=== PATIENT | female | born 1980 | race Caucasian/White ===

== ENCOUNTER 2017-05-08 11:39 | Emergency (ER) | payer MEDICAID, SELFPAY ==
[2017-05-08 11:40] VITALS: BP 129/94; PULSE 89; RESP 14; TEMP 36.1; O2SAT 98; BMI 27.9
--- NOTE | 2017-05-08 12:31 | RAD_ITS ---
STUDY: X-RAY CHEST REASON FOR EXAM: Female, 37 years old. Cough. TECHNIQUE: PA and lateral views of the chest. COMPARISON: Comparison is made with prior study dated January 16, 2016. FINDINGS: The lungs are clear and expanded. Scattered calcified granulomas. There is no demonstrated pleural abnormality. Normal size heart. Normal mediastinum and luci. Normal visualized pulmonary arteries. Normal visualized aortic arch and descending thoracic aorta. Normal visualized thoracic spine. Normal visualized ribs, clavicles, and shoulders. There is no demonstrated abnormality of the visualized soft tissue structures of the upper abdomen. RAD/Chest PA and Lateral IMPRESSION: Normal x-ray examination of the chest. Electronically Signed: Mikey Elizabeth MD at 12:50 EST Tel [phone], Service support ,
[2017-05-08 13:29] LABS: Internal QC Validated? YES +Cl - CLEAR BKGD; Monotest Negative (Negative)
--- NOTE | 2017-05-08 14:00 | ED.VISSUMM ---
- ER Visit Summary Date of Service: 05/08/17 Chief Complaint: [Bumps in mouth, gums soreness] History of Present Illness: The patient is a 37 F [who presents the emergency department with bumps in his mouth and gum soreness. Particularly of the right upper jaw. She says when she bites down it hurts and radiates into her right face. She is also had a cough and chest discomfort and runny nose. No fevers but she has had chills and sweats. She denies the possibility of .] Physical Examination: [ Afebrile vital signs within acceptable limits WN WD NAD PERRL EOMI Patient has punctate white lesions on the bottom of her top lip, she has good mentation however she has exquisite tenderness to percussion of the right maxillary molars there is no gum hyperemia, there is no visible abscess, she has pain with biting down Posterior oropharynx shows no erythema exudate or swelling no ulcerations or lesions NECK supple and nontender, no masses RRR no murmur rub or gallop, no peripheral edema, symmetric radial pulses CTAB no respiratory distress ABDOMEN is soft and nontender, normal bowel sounds, no distension, no rebound or guarding SKIN is warm and dry no rashes Alert and Oriented x3, CN II-XII in tact, no motor or sensory deficits, gait normal No lymphadenopathy ] Test Results: [] Emergency Department Course and Treatment: [Chest x-ray shows no acute process. Patient's pain is either likely due to a periapical abscess versus right maxillary sinusitis. She was given Augmentin. She was given precautions for which to return and will follow up with her primary care doctor. She was also given Decadron in the emergency department for symptomatic relief.] Treatment Plan: [] Disposition: [Discharge] Impression: [1. Viral syndrome 2. Right maxillary dental pain] This note was generated with [employer] dictation software. It may contain incorrect words, spelling, and punctuation that were not noted in review of the chart prior to signing ED Disposition - Plan for ED Patient: Chief Complaint: Sore Throat Referrals: Care Physician,No Primary [Primary Care Provider] -
--- NOTE | 2017-05-08 14:05 | ED.DEP ---
ED Disposition - Plan for ED Patient: Chief Complaint: Sore Throat Instructions: ED Viral Syndrome, ED Tooth Pain Referrals: Napoleon Souza DO [NON-STAFF] - 3-5 Days
--- NOTE | 2017-05-08 14:08 | ED.DEP ---
ED Disposition - Plan for ED Patient: Chief Complaint: Sore Throat Instructions: ED Tooth Pain, ED Viral Syndrome Prescriptions: Amox/Clavulanate Tablet [Augmentin Tablet] 875 mg PO Q12H #20 tablet Referrals: Napoleon Souza DO [NON-STAFF] - 3-5 Days
== END 2017-05-08 14:22 | disposition home or self-care (01) ==
LOC: ED 12:32
PROVIDERS: Emergency Provider Emergency Medicine
DX: B34.9 Viral infection, unspecified (principal); K08.89 Other specified disorders of teeth and supporting structures; Z86.711 Personal history of pulmonary embolism; Z72.0 Tobacco use
CPT/HCPCS: 36415; 71046; 86308; 99282

== ENCOUNTER 2017-05-15 15:11 | Emergency (ER) | payer MEDICAID, SELFPAY ==
[2017-05-15 15:12] VITALS: BP 141/103; PULSE 119; RESP 16; TEMP 39.4; O2SAT 98; BMI 25.7
[2017-05-15 15:16] VITALS: O2SAT 100
--- NOTE | 2017-05-15 15:40 | EKG12_ITS ---
Test Reason : CP Blood Pressure : / mmHG Vent. Rate : 119 BPM Atrial Rate : 119 BPM P-R Int : 128 ms QRS Dur : 068 ms QT Int : 312 ms P-R-T Axes : 032 065 053 degrees QTc Int : 438 ms Sinus tachycardia Otherwise normal ECG Confirmed by CAYETANO MYRICK, AMBAR ([id number]), purchase request editor TI ZAIDI ([id number]) on 05/16/2017 1:20:58 PM Referred By: SURAJ BROOKS Confirmed By:AMBAR MONTEIRO MD
--- NOTE | 2017-05-15 15:41 | CT_ITS ---
STUDY: CTA CHEST REASON FOR EXAM: Female, 37 years old. Chest pain and shortness of breath RADIATION DOSAGE (If Supplied By Facility): CTDIvol = ( 13.75 ) mGy, DLP = ( 363.44 ) mGycm TECHNIQUE: The examination was performed with the intravenous administration of 75ML ml of Isovue 370 contrast material. Post-processing of the angiographic images was performed, with multiplanar reformation and 3D reconstruction. Individualized dose optimization techniques were used for this CT. COMPARISON: None. FINDINGS: Normal enhancement of the main pulmonary artery and right and left pulmonary arteries. Normal enhancement of the bilateral peripheral pulmonary arteries. There is no demonstrated pulmonary embolism. Normal thoracic aorta and visualized great vessels. There is no demonstrated aortic dissection. Normal heart and pericardium. Normal mediastinum. Normal hilar regions. Normal visualized trachea and bronchi. The lungs are well expanded. Normal pulmonary parenchyma. Normal pleura. Normal chest wall structures. Normal osseous structures. Normal visualized upper abdomen. CT/CTA Chest W/WO Contrast IMPRESSION: Normal CTA chest examination, without a demonstrated pulmonary embolism or arterial dissection. Electronically Signed: Mani Galicia DO at 16:49 EST Tel , Service support ,
[2017-05-15] MEDS: Acetaminophen 500 MG Tablet 1000 MG PO (15:46)
[2017-05-15] MEDS: Oseltamivir Phosphate 75 MG Capsule PO (15:46)
--- NOTE | 2017-05-15 15:46 | NURSING ---
NO OLD EKGS
--- NOTE | 2017-05-15 15:47 | ED.DCSUM_ITS ---
- ER Visit Summary Date of Service: 05/15/17 Chief Complaint: Chest pain, fever, myalgias History of Present Illness: The patient is a 37 F morning complains of chest pain, fever, myalgias with cough. States clear sputum. No flu vaccination this year. History of PE in 2014, finish anticoagulations, states status post multiple surgeries at that time. Tobacco history. States symptoms feel similar when she had her PE back then. No recent travel, surgeries, or immobilizations. Take ibuprofen at 1 PM today. Denies any nausea, vomiting, diarrhea. No urinary symptoms. Last menstrual period 2 weeks ago Physical Examination: General: Alert and oriented ?3, appears uncomfortable, unable to sit still HEENT: Normocephalic, atraumatic. Moist mucosa membranes Neck: supple, nontender. Cardiovascular: Regular tachycardic rate and rhythm, no murmurs Respiratory: Normal breath sounds, symmetric, no distress Abdomen: Soft, nontender, nondistended Extremities: Nontender, no edema, pulses intact ?4 Neuro: no focal neurological deficits. Test Results: EKG: Sinus tachycardia, 119, no ST or T-wave changes. CBC white count 10.9. Creatinine 0.78. Troponin negative. Lactic acid 1.6. HCG negative. CTA chest: Negative. Influenza A positive Emergency Department Course and Treatment: Patient febrile, tachycardic. Complaining of chest pains with her symptoms. EKG and cardiac workup negative. Presents with influenza symptoms starting this morning, history of PE in the past. She started on Tamiflu in the ED. IV fluids given, heart rate improved. She was influenza A positive. Due to patient stating her symptoms felt similar when she had a PE in 2014, CTA chest was obtained. There is no PE. No infiltrates. She is improving symptoms in the ED. Discussed continued treatment with Tamiflu for 5 days. Continue Tylenol, Motrin, oral fluids at home. All questions answered. Return if any worsening symptoms. Treatment Plan: Tamiflu Disposition: Discharge Impression: 1. Influenza A 2. Atypical chest pain This note was generated with [employer] software. It may contain incorrect words, spelling, and punctuation that were not noted in review of the chart prior to signing ED Disposition - Plan for ED Patient: Disposition: Home or Assisted Living Chief Complaint: Cough Diagnosis: Influenza A, Atypical chest pain Instructions: ED Flu, ED Chest Pain Atypical Unkn Cause Prescriptions: Oseltamivir Phosphate [Tamiflu] 75 mg PO BID #10 cap Referrals: Care Physician,No Primary [Primary Care Provider] - Henrry Medrano III, MD [STAFF PHYSICIAN] - 5-7 Days
[2017-05-15 15:49] VITALS: BP 135/70; PULSE 95; RESP 14; O2SAT 97
[2017-05-15 15:50] VITALS: BP 138/89; PULSE 116; RESP 17; TEMP 38.8; O2SAT 98
[2017-05-15] MEDS: 0.9% Normal Saline 1,000 ML 999 ML IV (15:51)
[2017-05-15] MEDS: fentaNYL 100 MCG/2 ML Ampul 25 MCG IV (16:00)
[2017-05-15 16:05] LABS: Absolute Lymphocyte Count 0.62 X10^3/ul (0.83-4.51); Absolute Neutrophil Count 8.7 X10^3/uL (2.0-7.7); Basophil# 0.08 X10^3/uL; Basophil% 0.7 % (0-1); Eosinophil# 0.16 X10^3/uL; Eosinophils% 1.5 % (0-5); Hematocrit 40.1 % (37-47); Hemoglobin 13.2 g/dl (12.0-15.0); Lymphocyte # 0.62 X10^3/ul (4.0); Lymphocyte % 5.7 % (19-41); Mean Corp Hgb Conc 32.9 g/gl (32-36); Mean Corpuscular Volume 97.3 fL (81-99); Mean Platelet Vol. 9.8 fl (6.2-12.0); Monocyte# 1.26 X10^3/uL; Monocyte% 11.6 % (0-10); Neutrophil # 8.71 X10^3/uL (2.7-7.7); Neutrophil % 80.3 % (47-70); Partial Thromboplast Time 29.7 Seconds (24.1-36.2); Platelet Count 321 K/mm3 (150-450); Prothrombin Time (Protime)PT. 13.2 SECONDS (11.7-14.9); RBC Distribution Width CV 13.6 % (11.6-14.6); RBC Distribution Width SD 48.4 fl (35.1-43.9); Red Blood Count 4.12 M/mm3 (4.2-5.4); White Blood Count 10.9 K/mm3 (4.4-11.0)
[2017-05-15 16:06] LABS: POSITIVE COUNT NO; POSITIVE DIFFERENTIAL NO; POSITIVE MORPHOLOGY NO
[2017-05-15 16:16] LABS: Lactic Acid 1.6 mmol/L (0.4-2.0)
[2017-05-15 16:19] LABS: AST(SGOT) 7 U/L (15-37); Alanine Aminotransfer ALT/SGPT 22 U/L (13-56); Albumin, Serum 3.9 g/dL (3.2-5.0); Alkaline Phosphatase 54 U/L (45-117); Anion Gap 8 (5-15); BUN 11 mg/dL (7-18); BUN/Creat Ratio 14.1 RATIO (10-20); Calcium,Total 8.8 mg/dL (8.5-10.1); Chloride 106 mmol/L (98-107); Creatinine, Serum 0.78 mg/dL (0.55-1.02); EST Glomerular Filtration Rate 88 mL/min (>60); Est Glom Filt Rate - Afr Amer 106 mL/min (>60); Glucose 90 mg/dL (74-106); Potassium 3.8 mmol/L (3.5-5.1); Protein, Total 7.9 g/dL (6.4-8.2); Sodium Level 141 mmol/L (136-145)
[2017-05-15 16:21] LABS: Pregnancy, Serum, hCG Quali. NEGATIVE Negative (0-9 Nonpreg)
[2017-05-15 16:42] VITALS: BP 105/62; PULSE 102; RESP 14; O2SAT 99
[2017-05-15 17:19] VITALS: BP 108/70; PULSE 105; PULSE 98; RESP 14; O2SAT 98; O2SAT 99
== END 2017-05-15 17:24 | disposition home or self-care (01) ==
PROVIDERS: Emergency Provider Emergency Medicine
DX: J09.X2 Influenza due to identified novel influenza A virus with other respiratory manifestations (principal); R07.89 Other chest pain; Z86.711 Personal history of pulmonary embolism; Z72.0 Tobacco use
CPT/HCPCS: 71275; 80053; 83605; 84484; 84703; 85025; 85610; 85730; 87040; 87804; 93005; 96361; 96374; 99285; J7030; Q9967; A4216

== ENCOUNTER 2017-08-16 19:28 | Emergency (ER) | payer SELFPAY ==
[2017-08-16 19:28] VITALS: BP 120/82; PULSE 86; RESP 20; TEMP 37; O2SAT 98; BMI 28.0
--- NOTE | 2017-08-16 20:01 | CT_ITS ---
STUDY: CT ABDOMEN AND PELVIS WITHOUT CONTRAST REASON FOR EXAM: Female, 37 years old. Left flank pain RADIATION DOSAGE (If Supplied By Facility): CTDIvol = ( 9.89 ) mGy, DLP = ( 479.27 ) mGycm TECHNIQUE: Transaxial images were obtained from the dome of the diaphragm to the symphysis pubis without oral contrast, and without intravenous contrast. Sagittal and coronal images were reconstructed. Individualized dose optimization techniques were used for this CT. COMPARISON: 02/13/2017 FINDINGS: Evaluation of the abdominal viscera is limited in the absence of intravenous contrast. The visualized lung bases are clear. The visualized portions of the heart and pericardium are within normal limits. There are no calcified gallstones present. The liver demonstrates an unremarkable unenhanced appearance. The spleen is normal in size. The pancreas demonstrates an unremarkable unenhanced appearance. The adrenal glands are within normal limits. There are no obstructing renal stones. There is no hydronephrosis. Normal visualized stomach. There is no bowel obstruction or inflammation. The appendix is visualized and appears normal. The aorta is normal in caliber. There is no abdominal or pelvic free air, free fluid, fluid collection or lymphadenopathy. There are tubal ligation clips noted in the adnexa. There are no destructive osseous lesions. CT/Abdomen/Pelvis without Cont IMPRESSION: No acute abdominal or pelvic pathology demonstrated on this noncontrast CT. Electronically Signed: Josh Gamez, at 22:05 EDT Tel , Service support ,
[2017-08-16] MEDS: Ondansetron 4 MG/2 ML Vial IV (20:34)
[2017-08-16] MEDS: 0.9% Normal Saline 1,000 ML 1000 ML IV (20:34)
[2017-08-16 20:46] LABS: Mucous, Urine 0 SEEN /hpf (<or=2+); White Blood Cells 0 SEEN /hpf (0-5)
[2017-08-16 20:47] LABS: Color, Urine Yellow (Yellow); Glucose, Dipstick Normal (Normal); Ketone-Dipstick 5 mg/dl (Negative); Leukocyte Esterase-Dipstick 25 /ul (Negative); Nitrite-Dipstick Negative (Negative); Occult Blood-Urine 10 /ul (Negative); Protein-Dipstick 15 mg/dl (Negative); Specific Gravity, Urine 1.025 (1.002-1.030); Urine Clarity Sl. Cloudy (Clear); Urine Urobilinogen 1 mg/dl (Normal)
[2017-08-16 20:48] LABS: Absolute Lymphocyte Count 3.03 X10^3/ul (0.83-4.51); Absolute Neutrophil Count 4.8 X10^3/uL (2.0-7.7); Basophil% 1.1 % (0-1); Eosinophil# 0.41 X10^3/uL; Eosinophils% 4.5 % (0-5); Hematocrit 39.2 % (37-47); Hemoglobin 12.9 g/dl (12.0-15.0); Lymphocyte # 3.03 X10^3/ul (4.0); Lymphocyte % 33.2 % (19-41); Mean Corp Hgb Conc 32.9 g/gl (32-36); Mean Corpuscular Hgb 31.4 pg (27.0-32.0); Mean Corpuscular Volume 95.4 fL (81-99); Mean Platelet Vol. 9.5 fl (6.2-12.0); Monocyte# 0.75 X10^3/uL; Monocyte% 8.2 % (0-10); Neutrophil # 4.82 X10^3/uL (2.7-7.7); Neutrophil % 52.8 % (47-70); Platelet Count 365 K/mm3 (150-450); RBC Distribution Width CV 13.8 % (11.6-14.6); Red Blood Count 4.11 M/mm3 (4.2-5.4); White Blood Count 9.1 K/mm3 (4.4-11.0)
[2017-08-16 20:49] LABS: POSITIVE COUNT NO; POSITIVE DIFFERENTIAL NO; POSITIVE MORPHOLOGY NO
--- NOTE | 2017-08-16 21:06 | ED.VISSUMM ---
- ER Visit Summary Date of Service: 08/16/17 Chief Complaint: Left flank pain History of Present Illness: The patient is a 37 F presenting with 2 days of left flank pain radiating anteriorly. No chest pain or shortness of breath. She is nauseated but not vomiting. No urinary symptoms. No recent travel. No leg pain. Physical Examination: Mild tenderness left flank. Overlying skin normal. Mild left mid abdominal tenderness but no rebound or guarding. Lungs are clear bilaterally. No clinical evidence of DVT. Test Results: Are within normal limits. Urinalysis unremarkable except for trace ketones. She was given IV fluids and Zofran with improvement. CT scan negative for acute process. Emergency Department Course and Treatment: She was medicated and feels better. She has no pelvic pain or other symptoms of ovarian torsion. She only has left upper quadrant and mid abdominal pain that is much worse with eating. No chest pain or shortness of breath. She is not tachycardic and her pulse ox is 100% so I do not suspect pulmonary embolism. 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 I will treat her with Bentyl and Pepcid. She will return if worse. Treatment Plan: bentyl and Pepcid, follow-up with GI Disposition: Home stable condition Impression: Initial encounter left abdominal pain uncertain etiology This note was generated with [employer] dictation software. It may contain incorrect words, spelling, and punctuation that were not noted in review of the chart prior to signing ED Disposition - Plan for ED Patient: Chief Complaint: Flank Pain Instructions: ED Flank Pain Uncertain Cause Prescriptions: Dicyclomine HCl [Bentyl] 20 mg PO TIDAC #20 capsule Famotidine [Pepcid] 20 mg PO BID #28 tablet Referrals: Armando Huerta MD [STAFF PHYSICIAN] - As soon as possible
[2017-08-16 21:19] LABS: AST(SGOT) 7 U/L (15-37); Alanine Aminotransfer ALT/SGPT 16 U/L (13-56); Albumin, Serum 3.3 g/dL (3.2-5.0); Alkaline Phosphatase 56 U/L (45-117); Anion Gap 6 (5-15); BUN 9 mg/dL (7-18); BUN/Creat Ratio 12.5 RATIO (10-20); Bilirubin, Direct 0.06 mg/dL (0.00-0.30); Calcium,Total 8.2 mg/dL (8.5-10.1); Chloride 112 mmol/L (98-107); Creatinine, Serum 0.72 mg/dL (0.55-1.02); EST Glomerular Filtration Rate 96 mL/min (>60); Est Glom Filt Rate - Afr Amer 117 mL/min (>60); Estimated Creatinine Clearance 95.33 ml/min; Globulin 3.8 g/dL (2.2-4.2); Glucose 98 mg/dL (74-106); Lipase 86 U/L (73-393); Potassium 3.9 mmol/L (3.5-5.1); Protein, Total 7.1 g/dL (6.4-8.2); Sodium Level 143 mmol/L (136-145)
[2017-08-16 21:30] LABS: Pregnancy, Serum, hCG Quali. NEGATIVE Negative (0-9 Nonpreg)
[2017-08-16 21:33] LABS: Urine Bilirubin Dipstick 1 mg/dL (Negative)
[2017-08-16 21:34] LABS: Bacteria RARE /hpf (None Seen); Calcium Oxalate Crystals Ur RARE /hpf (<or=2+); Red Blood Cells-Urine 0-5 SEEN /hpf (0-5); Squamous Epithelial Cells - UA 5-10 SEEN /hpf (5-10)
[2017-08-16] MEDS: Dicyclomine 10 MG Capsule 20 MG PO (22:46)
[2017-08-16] MEDS: Famotidine 20 MG Tablet PO (22:46)
== END 2017-08-16 22:48 | disposition home or self-care (01) ==
PROVIDERS: Emergency Provider Emergency Medicine
DX: R10.12 Left upper quadrant pain (principal); Z87.442 Personal history of urinary calculi; Z86.711 Personal history of pulmonary embolism; Z72.0 Tobacco use
CPT/HCPCS: 74176; 80048; 80076; 81001; 83690; 84703; 85025; 96361; 96374; 99284; J7030; A4216; J2405

== ENCOUNTER 2018-02-24 15:22 | Emergency (ER) | payer SELFPAY ==
[2018-02-24 15:22] VITALS: BMI 27.9
[2018-02-24 15:23] VITALS: BP 118/79; PULSE 92; RESP 16; TEMP 36.2; O2SAT 98; BMI 25.0
--- NOTE | 2018-02-24 16:26 | ED.VISSUMM ---
- ER Visit Summary Date of Service: 02/24/18 Chief Complaint: Right ear pain History of Present Illness: The patient is a 37 F with headaches and facial pressure for the past 1 week. Today she had more significant pain on the right side of her face with radiation to her ear. She reports her gums over the area where her wisdom teeth were previously removed is tender. She has no other dental pain. She has mild right facial swelling. She has not noted a fever. Physical Examination: Vital signs unremarkable. Patient is afebrile. Head neck examination reveals mild right facial swelling. TMs are clear bilaterally. Intraoral examination was mild tenderness to the right posterior gums both maxillary and mandibular with no significant gum edema. There is mild tenderness over the right parotid gland with no significant focal enlargement. She does have tenderness to the right maxillary sinus. Posterior pharynx examination is unremarkable. Heart is regular rate and rhythm. Lungs sounds clear. Abdomen is soft nontender. Skin examination reveals no erythema or sign of cellulitis. Test Results: [] Emergency Department Course and Treatment: Patient be treated with a course of Augmentin to cover her sinuses. This will also help with dental and ear if there is underlying infection brewing there. Treatment Plan: [] Disposition: Discharge Impression: Sinusitis This note was generated with [employer] dictation software. It may contain incorrect words, spelling, and punctuation that were not noted in review of the chart prior to signing ED Disposition - Plan for ED Patient: Chief Complaint: Other, Pain/Inj Referrals: Care Physician,No Primary [Primary Care Provider] -
--- NOTE | 2018-02-24 16:28 | ED.DEP ---
ED Disposition - Plan for ED Patient: Disposition: Home or Assisted Living Chief Complaint: Other, Pain/Inj Instructions: ED Sinusitis Abx Tx Prescriptions: Amox/Clavulanate Tablet [Augmentin Tablet] 875 mg PO Q12H #20 tablet Referrals: Best Aquino MD [STAFF PHYSICIAN] - As Needed
[2018-02-24 16:48] VITALS: BP 121/78; PULSE 83; RESP 16; O2SAT 98
== END 2018-02-24 16:59 | disposition home or self-care (01) ==
PROVIDERS: Emergency Provider Emergency Medicine
DX: J32.0 Chronic maxillary sinusitis (principal); I10 Essential (primary) hypertension; Z87.442 Personal history of urinary calculi; Z86.711 Personal history of pulmonary embolism; Z72.0 Tobacco use
CPT/HCPCS: 99282

== ENCOUNTER 2018-04-16 21:05 | Emergency (ER) | payer SELFPAY ==
[2018-04-16 21:07] VITALS: BP 147/91; PULSE 87; RESP 18; TEMP 36.9; O2SAT 98; BMI 28.5
--- NOTE | 2018-04-16 21:23 | EKG12_ITS ---
Test Reason : Blood Pressure : / mmHG Vent. Rate : 089 BPM Atrial Rate : 089 BPM P-R Int : 150 ms QRS Dur : 066 ms QT Int : 392 ms P-R-T Axes : 044 063 028 degrees QTc Int : 476 ms Normal sinus rhythm Possible Left atrial enlargement Septal infarct , age undetermined Abnormal ECG Confirmed by CAYETANO MYRICK, AMBAR ([id number]), medical transcription editor TI ZAIDI ([id number]) on 04/17/2018 5:26:53 PM Referred By: BRADLEY Confirmed By:AMBAR MONTEIRO MD
[2018-04-16 21:51] LABS: Absolute Lymphocyte Count 4.28 X10^3/ul (0.83-4.51); Absolute Neutrophil Count 11.2 X10^3/uL (2.0-7.7); Basophil% 0.6 % (0-1); Eosinophils% 1.7 % (0-5); Hematocrit 40.3 % (37-47); Hemoglobin 13.3 g/dl (12.0-15.0); Lymphocyte # 4.28 X10^3/ul (4.0); Lymphocyte % 24.3 % (19-41); Mean Corpuscular Hgb 31.7 pg (27.0-32.0); Mean Platelet Vol. 9.5 fl (6.2-12.0); Monocyte# 1.63 X10^3/uL; Monocyte% 9.3 % (0-10); Neutrophil # 11.23 X10^3/uL (2.7-7.7); Neutrophil % 63.7 % (47-70); Platelet Count 345 K/mm3 (150-450); RBC Distribution Width CV 13.9 % (11.6-14.6); RBC Distribution Width SD 48.1 fl (35.1-43.9); White Blood Count 17.6 K/mm3 (4.4-11.0)
[2018-04-16 21:54] LABS: Differential Indicated SCAN CRITERIA MET; POSITIVE COUNT NO; POSITIVE DIFFERENTIAL YES; POSITIVE MORPHOLOGY NO
[2018-04-16 22:08] LABS: Differential Comment SCANNED
--- NOTE | 2018-04-16 22:10 | CT_ITS ---
STUDY: CT ABDOMEN AND PELVIS WITHOUT CONTRAST REASON FOR EXAM: Female, 38 years old. Right-sided abdominal pain and bloating elevated white count and diarrhea RADIATION DOSAGE (If Supplied By Facility): CTDIvol = ( 8.10 ) mGy, DLP = ( 417.88 ) mGycm TECHNIQUE: Transaxial images were obtained from the dome of the diaphragm to the symphysis pubis without oral contrast, and without intravenous contrast. Sagittal and coronal images were reconstructed. Individualized dose optimization techniques were used for this CT. COMPARISON: August 16, 2017 CT scan abdomen and pelvis FINDINGS: The visualized lung bases are unremarkable. The visualized portions of the heart are within normal limits. Normal liver. The gallbladder is contracted. Normal spleen. Normal pancreas. Normal bilateral adrenal glands. Normal right kidney. Normal left kidney. Normal visualized stomach. Normal small intestine. There is moderate stool in the colon. There is a radiopaque density within the pelvis on the right side towards the rectum suggesting probable tubal ligation clip or fallen clip. The appendix is visualized and appears normal. There is minimal calcification of the aorta. Normal inferior vena cava. There are nonspecific subcentimeter paratracheal lymph nodes. Normal urinary bladder. Normal visualized uterus. There is a small umbilical hernia containing fat. Normal osseous structures. CT/Abdomen/Pelvis without Cont IMPRESSION: Mild to moderate constipation. Nonspecific migration of what appears to be tubal ligation clips. Could consider follow-up pelvic ultrasound. Electronically Signed: Emmie Lopez MD at 23:24 EST Tel , Service support ,
[2018-04-16 22:12] LABS: Mucous, Urine 0 SEEN /hpf (<or=2+)
[2018-04-16 22:14] LABS: Color, Urine Yellow (Yellow); Glucose, Dipstick Normal (Normal); Ketone-Dipstick Negative (Negative); Leukocyte Esterase-Dipstick Negative /ul (Negative); Nitrite-Dipstick Negative (Negative); Occult Blood-Urine 150 /ul (Negative); Protein-Dipstick 100 mg/dl (Negative); Urine Bilirubin Dipstick Negative (Negative); Urine Clarity Cloudy (Clear); Urine Urobilinogen Normal (Normal)
[2018-04-16] MEDS: 0.9% Normal Saline 1,000 ML 1000 ML IV (22:17)
[2018-04-16] MEDS: Ondansetron 4 MG/2 ML Vial IV (22:18)
[2018-04-16 22:19] VITALS: BP 132/99; PULSE 78; RESP 16; TEMP 37.3; O2SAT 97
[2018-04-16 22:26] LABS: Pregnancy, Serum, hCG Quali. NEGATIVE Negative (0-9 Nonpreg)
[2018-04-16 22:40] LABS: Bacteria 2+ /hpf (None Seen); Squamous Epithelial Cells - UA 10-25 SEEN /hpf (5-10)
[2018-04-16 22:41] LABS: Red Blood Cells-Urine 0-5 SEEN /hpf (0-5); White Blood Cells 0-5 SEEN /hpf (0-5)
[2018-04-16 23:26] LABS: ALB/GLOB Ratio 0.8 RATIO (0.9-2.4); AST(SGOT) 7 U/L (15-37); Albumin, Serum 3.6 g/dL (3.2-5.0); BUN 16 mg/dL (7-18); BUN/Creat Ratio 23.2 RATIO (10-20); Calcium,Total 8.8 mg/dL (8.5-10.1); Creatinine, Serum 0.69 mg/dL (0.55-1.02); EST Glomerular Filtration Rate 101 mL/min (>60); Est Glom Filt Rate - Afr Amer 122 mL/min (>60); Globulin 4.6 g/dL (2.2-4.2); Glucose 155 mg/dL (74-106); Lipase 123 U/L (73-393); Protein, Total 8.2 g/dL (6.4-8.2)
[2018-04-16 23:27] LABS: Alanine Aminotransfer ALT/SGPT 28 U/L (13-56); Alkaline Phosphatase 77 U/L (45-117); Anion Gap 10 (5-15); Chloride 106 mmol/L (98-107); Potassium 3.2 mmol/L (3.5-5.1); Sodium Level 143 mmol/L (136-145)
--- NOTE | 2018-04-16 23:28 | ED.DCSUM_ITS ---
- ER Visit Summary Date of Service: 04/16/18 Chief Complaint: Abdominal pain and diarrhea History of Present Illness: The patient is a 38 F who presents with abdominal pain and diarrhea that began approximately 3 weeks ago. Patient states she started having diarrhea on a trip to [place]. Patient states she waited 2 weeks to see if it would resolve. Patient states her stools are watery and loose. Patient denies any melena or hematochezia. Patient states her pain is diffuse across her abdomen. Patient states she is feeling bloated. Patient states pain is worse when she eats. Patient describes pain as sharp and stabbing. Patient admits to some urinary frequency but denies any dysuria hematuria. Physical Examination: Vital signs are stable. Patient is afebrile. Patient is in no acute distress. Oral mucosa is pink and moist. Neck is supple. Trachea is midline. There is no JVD noted. Heart was regular rate and rhythm. Lungs are clear and equal bilaterally. There is good respiratory effort noted. Abdomen is soft. Bowel sounds are hypoactive. There is diffuse tenderness. There is no rebound or guarding noted. Cranial nerves II through XII are intact. There are no focal motor or sensory deficits noted. Test Results: EKG showed normal sinus rhythm with a rate of 89. There are no acute ST or T wave changes. CBC showed a leukocytosis of 17.6. Comprehensive metabolic profile shows slightly low potassium of 3.2. Urinalysis was normal. HCG was negative. CT scan of the abdomen and pelvis was obtained. There is moderate stool throughout the colon. There is no evidence of obstruction. Emergency Department Course and Treatment: Patient felt better on reevaluation. Patient was unable to provide stool specimen for stool studies. Patient was instructed to follow-up with her primary care physician for further evaluation. Patient understood and was agreeable with the plan. All questions were answered. Disposition: Discharge home Impression: 1. Abdominal pain 2. Diarrhea This note was generated with [employer] dictation software. It may contain incorrect words, spelling, and punctuation that were not noted in review of the chart prior to signing ED Disposition - Plan for ED Patient: Disposition: Home or Assisted Living Chief Complaint: Abd Pain Instructions: ED Abdominal Pain Unkn Cause Referrals: Care Physician,No Primary [Primary Care Provider] -
[2018-04-17 00:22] VITALS: TEMP 37.4
[2018-04-17 00:43] VITALS: BP 130/75; PULSE 65; RESP 17; O2SAT 99
== END 2018-04-17 00:43 | disposition home or self-care (01) ==
PROVIDERS: Emergency Provider Emergency Medicine
DX: R10.84 Generalized abdominal pain (principal); R19.7 Diarrhea, unspecified; M06.9 Rheumatoid arthritis, unspecified; Z86.711 Personal history of pulmonary embolism; Z72.0 Tobacco use
CPT/HCPCS: 74176; 80053; 81001; 83690; 84703; 85025; 93005; 96361; 96374; 99283; J7030; A4216; J2405

== ENCOUNTER 2018-06-18 15:18 | Emergency (ER) | payer SELFPAY ==
[2018-06-18 15:18] VITALS: BP 142/88; PULSE 80; RESP 16; TEMP 36.8; O2SAT 100; BMI 29.7
--- NOTE | 2018-06-18 15:32 | CT_ITS ---
STUDY: CT ABDOMEN AND PELVIS WITHOUT CONTRAST REASON FOR EXAM: Female, 38 years old. Left flank pain RADIATION DOSAGE (If Supplied By Facility): CTDIvol = ( 9.53 ) mGy, DLP = ( 492.86 ) mGycm TECHNIQUE: Transaxial images were obtained from the dome of the diaphragm to the symphysis pubis without oral contrast, and without intravenous contrast. Sagittal and coronal images were reconstructed. Individualized dose optimization techniques were used for this CT. COMPARISON: 04/16/2018 FINDINGS: The visualized lung bases are unremarkable. The visualized portions of the heart are within normal limits. Normal liver. Normal gallbladder and extrahepatic biliary system. Normal spleen. Normal pancreas. Normal bilateral adrenal glands. Normal right kidney. Normal left kidney. Normal visualized stomach. Normal small intestine. Normal colon. The appendix is visualized and appears normal. Normal abdominal aorta. Normal inferior vena cava. Normal retroperitoneum. Normal urinary bladder. Normal visualized uterus. No suspicious cystic mass or free fluid Normal abdominal wall. Normal osseous structures. CT/Abdomen/Pelvis without Cont IMPRESSION: No obstructive uropathy or adnexal mass. No CT evidence of acute inflammatory process Electronically Signed: Kyle Monreal MD at 17:23 EDT , Service support ,
--- NOTE | 2018-06-18 15:46 | ED.VISSUMM ---
- ER Visit Summary Date of Service: 06/18/18 Chief Complaint: [Flank pain] History of Present Illness: The patient is a 38 F [presents the emergency department complaint flank pain that started 5 days ago. Patient states the pain is been continuous. Patient rates her pain a 6 out of 10. Patient had nausea but no vomiting. Patient was seen in urgent care today and had her urine checked and was noted that she had hematuria so she was sent to the ER. Patient states that time she is been getting sweaty due to the pain. Currently she rates her pain a 6 out of 10. Patient has had a history of kidney stones and it feels like she might be try to pass a kidney stone. Patient's last menstrual periods May 28 and she does not believe that she is . Patient has a history of hypertension. Patient has history of thoracic aneurysm that is being followed and she recently had imaging within the last few months. Patient has had prior history of PEs but is not currently anticoagulated.] Physical Examination: [HEENT-PERRLA, EOMI. Cranial nerves II through XII grossly intact. TMs clear. Mucous membranes moist. No adenopathy. Cardiovascular-regular rate and rhythm without murmur or ectopy Lungs-clear to auscultation, chest wall stable without crepitus or subcu emphysema Abdomen-normoactive bowel sounds, soft, nontender, no rebound or rigidity, no peritoneal signs. Patient does have CVA tenderness on the left. Extremities-intact ?4, normal range of motion, normal pulses, atraumatic] Test Results: [CBC with differential showed a slightly elevated white blood cell count of 12.7, hemoglobin 14, hematocrit 43, placed 345. Chemistries were normal. Urinalysis was unremarkable. HCG was negative. CT flank showed nothing acute. 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 It may contain incorrect words, spelling, and punctuation that were not noted in review of the chart prior to signing ED Disposition - Plan for ED Patient: Referrals: Care Physician,No Primary [Primary Care Provider] -
[2018-06-18] MEDS: HYDROmorphone 1 MG/ML Syringe IV (15:47)
[2018-06-18] MEDS: Ondansetron 4 MG/2 ML Vial IV (15:47)
[2018-06-18] MEDS: 0.9% Normal Saline 1,000 ML 150 ML IV (15:47)
[2018-06-18 15:52] LABS: Absolute Lymphocyte Count 3.13 X10^3/ul (0.83-4.51); Absolute Neutrophil Count 8.2 X10^3/uL (2.0-7.7); Basophil# 0.08 X10^3/uL; Basophil% 0.6 % (0-1); Eosinophil# 0.26 X10^3/uL; Lymphocyte # 3.13 X10^3/ul (4.0); Lymphocyte % 24.6 % (19-41); Mean Corp Hgb Conc 32.6 g/gl (32-36); Mean Corpuscular Hgb 31.1 pg (27.0-32.0); Mean Corpuscular Volume 95.6 fL (81-99); Mean Platelet Vol. 9.6 fl (6.2-12.0); Monocyte# 1.05 X10^3/uL; Monocyte% 8.3 % (0-10); Neutrophil # 8.17 X10^3/uL (2.7-7.7); Neutrophil % 64.3 % (47-70); Platelet Count 345 K/mm3 (150-450); RBC Distribution Width CV 14.7 % (11.6-14.6); White Blood Count 12.7 K/mm3 (4.4-11.0)
[2018-06-18 15:53] LABS: POSITIVE COUNT NO; POSITIVE DIFFERENTIAL NO; POSITIVE MORPHOLOGY NO
[2018-06-18 16:11] LABS: Anion Gap 5 (5-15); BUN 8 mg/dL (7-18); BUN/Creat Ratio 12.1 RATIO (10-20); Calcium,Total 8.9 mg/dL (8.5-10.1); Chloride 108 mmol/L (98-107); Creatinine, Serum 0.66 mg/dL (0.55-1.02); EST Glomerular Filtration Rate 105 mL/min (>60); Est Glom Filt Rate - Afr Amer 127 mL/min (>60); Estimated Creatinine Clearance 102.98 ml/min; Glucose 98 mg/dL (74-106); Potassium 3.9 mmol/L (3.5-5.1); Sodium Level 138 mmol/L (136-145)
[2018-06-18 16:30] LABS: Pregnancy, Serum, hCG Quali. NEGATIVE Negative (0-9 Nonpreg)
[2018-06-18 16:56] LABS: Bacteria 0 SEEN /hpf (None Seen); Mucous, Urine 0 SEEN /hpf (<or=2+)
[2018-06-18 17:08] LABS: Color, Urine Yellow (Yellow); Glucose, Dipstick Normal (Normal); Ketone-Dipstick Negative (Negative); Leukocyte Esterase-Dipstick 25 /ul (Negative); Nitrite-Dipstick Negative (Negative); Occult Blood-Urine 25 /ul (Negative); Protein-Dipstick 30 mg/dl (Negative); Specific Gravity, Urine 1.015 (1.002-1.030); Urine Bilirubin Dipstick Negative (Negative); Urine Clarity Sl. Cloudy (Clear); Urine Urobilinogen Normal (Normal)
[2018-06-18 17:23] LABS: Squamous Epithelial Cells - UA 0-5 SEEN /hpf (5-10)
[2018-06-18 17:25] LABS: Red Blood Cells-Urine 0-5 SEEN /hpf (0-5); White Blood Cells 0-5 SEEN /hpf (0-5)
[2018-06-18 18:21] LABS: D-Dimer Quantitative (DVT/PE) < 0.27 FEU/ug/m (0.27-0.49)
--- NOTE | 2018-06-18 19:02 | ED.DEP ---
ED Disposition - Plan for ED Patient: Instructions: ED Flank Pain Uncertain Cause Prescriptions: Oxycodone HCl/Acetaminophen [Percocet 5/325] 1 tab PO Q6H PRN PRN 3 Days #12 tab PRN Reason: Pain Referrals: Care Physician,No Primary [Primary Care Provider] - Chencho Hardy MD [STAFF PHYSICIAN] - 3-5 Days
[2018-06-18 19:09] VITALS: BP 135/70; PULSE 75; RESP 14; O2SAT 98
== END 2018-06-18 19:12 | disposition home or self-care (01) ==
PROVIDERS: Emergency Provider Emergency Medicine
DX: R10.9 Unspecified abdominal pain (principal); M54.9 Dorsalgia, unspecified; I71.2 Thoracic aortic aneurysm, without rupture; Z87.442 Personal history of urinary calculi; Z86.711 Personal history of pulmonary embolism; Z72.0 Tobacco use
CPT/HCPCS: 74176; 80048; 81001; 84703; 85025; 85379; 96361; 96374; 96375; 99283; A4216; J2405

== ENCOUNTER 2018-07-06 13:41 | Emergency (ER) | payer SELFPAY ==
[2018-07-06 13:41] VITALS: BP 121/86; PULSE 87; RESP 14; TEMP 36.5; O2SAT 100; BMI 25.0
--- NOTE | 2018-07-06 14:16 | ED.VISSUMM ---
- ER Visit Summary Date of Service: 07/06/18 Chief Complaint: Back pain History of Present Illness: The patient is a 38 F who sees [facility] physicians. She does not have a specific physician that she states that she sees. She reports she has had intermittent back pain for approximately 1-1/2 months. It worsened 3 days ago. It is a dull, aching pain to her lower back zeta 10 at worst and 6 out of 10 currently. Is worsened by sleeping and relieved by nothing. She reports that she has tingling in her feet bilaterally that comes and goes. The pain does not radiate to her legs. No numbness in her groin. No problems with her bowels or her bladder. She does report she is been getting cramps in her calves. Physical Examination: Vitals: Stable. Afebrile. General: A&O x 3. NAD. Cardiovascular exam: Regular rate and rhythm, no murmur, rub or gallop. Respiratory exam: Clear to auscultation bilaterally. No wheezes or stridor. Abdominal exam: Soft, nontender, nondistended, normal bowel sounds. No peritoneal signs. Back: Diffuse moderate tenderness to palpation over the lumbar spine and the paraspinous musculature in the lumbar region. No point tenderness. Negative straight leg bilaterally. 5/5 DF, PF, EHL bilaterally. Decreased sensation to light touch in her entire left foot. This is not an anatomic distribution. Extremity: No clubbing, cyanosis, or edema. 2+ dorsalis pedis pulse bilaterally. Test Results: Patient reports that she had a workup here done on June 18 and does not want any blood work or urine obtained. This was reviewed. At that time her CBC was remarkable for a count of 12.7. Her Chem-7 was marked for chloride of 108 and test was negative. Her UA was negative. She had CT flank it was negative. Emergency Department Course and Treatment: Patient was given Tylenol p.o. Treatment Plan: Patient reports that her primary care physician will not see her for this. I suggested that if she continues to have symptoms that she needs to have an MRI and further evaluation. She is asked for referral to a specialist. She was given the name of Dr. Arellano for orthopedic surgery and instructed follow-up him as soon as possible. I did discuss with her also the addictive nature of opiate-based medications. I do not think that putting her on these is in her best interest. Instructed use Tylenol, ibuprofen for pain. Use a TENS unit and warm compresses. Return to the emergency department for the signs and symptoms of cauda equina syndrome and these were discussed. Disposition: To home in improved and stable condition. Impression: 1. Back pain, acute on chronic. This note was generated with [employer] dictation software. It may contain incorrect words, spelling, and punctuation that were not noted in review of the chart prior to signing ED Disposition - Plan for ED Patient: Disposition: Home or Assisted Living Instructions: ED Neck Back Pain General Referrals: Ac Arellano DO [STAFF PHYSICIAN] - 3-5 Days if not improving
[2018-07-06] MEDS: Acetaminophen 500 MG Tablet 1000 MG PO (14:46)
== END 2018-07-06 14:48 | disposition home or self-care (01) ==
LOC: ED 14:11
PROVIDERS: Emergency Provider Emergency Medicine
DX: M54.5 Low back pain (principal); G89.29 Other chronic pain; I10 Essential (primary) hypertension; I71.2 Thoracic aortic aneurysm, without rupture; Z86.711 Personal history of pulmonary embolism; Z87.442 Personal history of urinary calculi; Z72.0 Tobacco use
CPT/HCPCS: 99283

== ENCOUNTER 2018-09-29 16:44 | Emergency (ER) | payer SELFPAY ==
[2018-09-29 16:45] VITALS: BP 122/84; PULSE 90; RESP 16; TEMP 36.4; O2SAT 98; BMI 25.0
--- NOTE | 2018-09-29 16:59 | ED.VISSUMM ---
- ER Visit Summary Date of Service: 09/29/18 Chief Complaint: [Dental pain] History of Present Illness: The patient is a 38 F [results to the emergency department complaint of pain in her gums and facial swelling. Patient states that she saw a dentist 2 months ago and was told she had periodontal disease. Patient was treated with cephalexin at that time. Patient was given a special type of mouthwash to use if she developed more pain. Patient states that over the last couple days she has had increased pain to her gums. Patient feels like her lymph nodes are swollen. She just feels fatigued. She denies any fever. Patient also states that she is currently scheduled to see her primary care physician as she has had a visit with a nurse practitioner who did a sed rate that was noted to be elevated however it is believe that she might possibly have some sort of connective tissue disorder.] Physical Examination: [HENITO-PERRLA, EOMI. Cranial nerves II through XII grossly intact. TMs clear. Mucous membranes moist. No adenopathy. Dentition-patient has mild diffuse tenderness over the upper and lower gingiva. There is some faint erythema noted. No dental abscess noted. No dental caries noted. I do not appreciate any significant lymphadenopathy. Patient has no facial cellulitis. Cardiovascular-regular rate and rhythm without murmur or ectopy Lungs-clear to auscultation, chest wall stable without crepitus or subcu emphysema Abdomen-normoactive bowel sounds, soft, nontender, no rebound or rigidity, no peritoneal signs. Extremities-intact ?4, normal range of motion, normal pulses, atraumatic] Test Results: [None indicated] Emergency Department Course and Treatment: [Patient was on clindamycin and will be given a prescription for a few [place] for pain. She is to keep her appointment with her primary care physician and to make a follow-up appointment with her dentist.] Treatment Plan: [Patient will be treated with [place] and clindamycin.] Disposition: [Discharged in stable condition] Impression: [Dental pain/gingival disease] This note was generated with [employer] software. It may contain incorrect words, spelling, and punctuation that were not noted in review of the chart prior to signing ED Disposition - Plan for ED Patient: Referrals: Care Physician,No Primary [Primary Care Provider] -
--- NOTE | 2018-09-29 17:02 | ED.DEP ---
ED Disposition - Plan for ED Patient: Instructions: Dental Pain Prescriptions: Clindamycin HCl [Cleocin] 300 mg PO Q6H #40 cap Prescription Printed Hydrocodone Bitart/Apap 5-325 [[place] 5MG-325MG] 1 tab PO Q4H PRN PRN 2 Days #10 tab PRN Reason: Pain Prescription Printed Referrals: Care Physician,No Primary [Primary Care Provider] - Additional Instructions: see your doctor and dentist within next 5-7 days
== END 2018-09-29 17:21 | disposition home or self-care (01) ==
LOC: ED 17:18
PROVIDERS: Emergency Provider Emergency Medicine
DX: K06.9 Disorder of gingiva and edentulous alveolar ridge, unspecified (principal); K08.89 Other specified disorders of teeth and supporting structures; Z72.0 Tobacco use
CPT/HCPCS: 99282

== ENCOUNTER 2018-10-31 12:46 | Emergency (ER) | payer SELFPAY ==
[2018-10-31 12:47] VITALS: BP 134/83; PULSE 91; RESP 17; TEMP 36.6; O2SAT 98; BMI 25.0
[2018-10-31 13:05] VITALS: BP 124/95; PULSE 83; RESP 21; O2SAT 97
--- NOTE | 2018-10-31 13:08 | CT_ITS ---
STUDY: CTA CHEST REASON FOR EXAM: Female, 38 years old. One-month history of a worsening right-sided chest pain. RADIATION DOSAGE (If Supplied By Facility): CTDIvol = ( 10.38 ) mGy, DLP = ( 490.45 ) mGycm TECHNIQUE: The examination was performed with the intravenous administration of 75mL IV Isovue 370. Post-processing of the angiographic images was performed, with multiplanar reformation and 3D reconstruction. Individualized dose optimization techniques were used for this CT. COMPARISON: Comparison is made with prior study dated May 15, 2017. FINDINGS: Normal enhancement of the main pulmonary artery and right and left pulmonary arteries. Normal enhancement of the bilateral peripheral pulmonary arteries. There is no demonstrated pulmonary embolism. Normal thoracic aorta and visualized great vessels. There is no demonstrated aortic dissection. Normal heart and pericardium. Normal mediastinum. Normal hilar regions. Normal visualized trachea and bronchi. The lungs are well expanded. Normal pulmonary parenchyma. Normal pleura. Normal chest wall structures. Normal osseous structures. Normal visualized upper abdomen. CT/CTA Chest W/WO Contrast IMPRESSION: Normal CTA chest examination, without a demonstrated pulmonary embolism or arterial dissection. Electronically Signed: Mikey Elizabeth, at 15:14 EDT , Service support ,
--- NOTE | 2018-10-31 13:08 | EKG12_ITS ---
Test Reason : CP Blood Pressure : / mmHG Vent. Rate : 085 BPM Atrial Rate : 085 BPM P-R Int : 126 ms QRS Dur : 082 ms QT Int : 396 ms P-R-T Axes : 039 037 022 degrees QTc Int : 471 ms Normal sinus rhythm Normal ECG Confirmed by MERCEDEZ MYRICK, ROJELIO ([id number]), industrial editor KAMILA CASTILLO ([id number]) on 11/01/2018 1:15:06 PM Referred By: SONIA Confirmed By:HALLEY NEWSOME MD
[2018-10-31 13:19] LABS: Absolute Lymphocyte Count 2.43 X10^3/uL (0.83-4.51); Absolute Neutrophil Count 7.5 X10^3/uL (2.0-7.7); Basophil# 0.09 X10^3/uL; Basophil% 0.8 % (0-1); Eosinophil# 0.28 X10^3/uL; Eosinophils% 2.5 % (0-5); Hematocrit 40.9 % (37-47); Hemoglobin 13.9 g/dL (12.0-15.0); Lymphocyte # 2.43 X10^3/ul (4.0); Mean Corpuscular Hgb 32.7 pg (27.0-32.0); Mean Corpuscular Volume 96.2 fL (81-99); Mean Platelet Vol. 9.6 fl (6.2-12.0); Monocyte# 0.77 X10^3/uL; NRBC Flagged by Analyzer 0 % (0-5); Neutrophil # 7.45 X10^3/uL (2.7-7.7); Neutrophil % 67.3 % (47-70); Platelet Count 333 K/mm3 (150-450); RBC Distribution Width CV 13.5 % (11.6-14.6); Red Blood Count 4.25 M/mm3 (4.2-5.4); White Blood Count 11.1 K/mm3 (4.4-11.0)
[2018-10-31 13:27] VITALS: O2SAT 97
[2018-10-31] MEDS: fentaNYL 100 MCG/2 ML Ampul 50 MCG IV (13:34)
[2018-10-31] MEDS: 0.9% Normal Saline 1,000 ML 1000 ML IV (13:34)
[2018-10-31 13:41] LABS: Anion Gap 9 (5-15); BUN 7 mg/dL (7-18); BUN/Creat Ratio 7.3 RATIO (10-20); Calcium,Total 8.6 mg/dL (8.5-10.1); Chloride 109 mmol/L (98-107); Creatinine, Serum 0.96 mg/dL (0.55-1.02); EST Glomerular Filtration Rate 69 mL/min (>60); Est Glom Filt Rate - Afr Amer 83 mL/min (>60); Glucose 226 mg/dL (74-106); Sodium Level 141 mmol/L (136-145)
[2018-10-31 14:16] VITALS: BP 123/90; PULSE 76; RESP 17; O2SAT 96
[2018-10-31 14:23] LABS: Internal QC Validated? YES +Cl - CLEAR BKGD; Pregnancy, Serum, hCG Quali. NEGATIVE Negative
[2018-10-31 15:30] VITALS: BP 122/87; PULSE 68; RESP 13; O2SAT 96
--- NOTE | 2018-10-31 15:36 | ED.VISSUMM ---
- ER Visit Summary Date of Service: 10/31/18 Chief Complaint: Pain History of Present Illness: The patient is a 38 F with right-sided chest pain. Patient has had these symptoms for about a month, but the symptoms were worse last night and today. The pain is now radiating to her chest and back. Worse with breathing. She also reports some tingling in her right upper extremity. Denies any abdominal pain or GI symptoms. She does have a history of PE and aortic ectasia, 3.9 cm. She does not take blood thinners. Physical Examination: Afebrile and vital signs unremarkable. Patient appears uncomfortable but not toxic or in distress. She is alert and oriented. Arms unremarkable. Neurovascularly intact. Right chest wall tender to palpation. Heart regular. Lungs clear. Abdomen soft and nontender. Skin appears normal without jaundice. Test Results: EKG showed sinus rhythm at a rate of 85. White count 11.1. BMP unremarkable except for glucose 226. Troponin normal. hCG negative. CTA showed no evidence of PE or dissection. Emergency Department Course and Treatment: Patient treated with fentanyl while awaiting results. She presents with right-sided chest pain with a history of PE and aortic dilation. Work-up as above, was unremarkable. Nothing to suggest a GI, source. I believe this is likely myofascial pain. Patient will continue taking qzpm-mhm-zsaigmw remedies. Follow-up as an outpatient. Return for any new or worsening issues. Treatment Plan: As above Disposition: Discharge Impression: 1. Chest wall pain right side This note was generated with [employer] dictation software. It may contain incorrect words, spelling, and punctuation that were not noted in review of the chart prior to signing ED Disposition - Plan for ED Patient: Referrals: Care Physician,No Primary [Primary Care Provider] -
--- NOTE | 2018-10-31 15:38 | ED.DEP ---
ED Disposition - Plan for ED Patient: Instructions: CHEST PAIN, Uncertain Cause (Child) Additional Instructions: follow up with your doctor
[2018-10-31 15:47] VITALS: BP 122/87; PULSE 78; RESP 19; O2SAT 96
--- NOTE | 2018-10-31 15:47 | ED.RN ---
IV DC'ED, CATHETER INTACT, SMALL GAUZE DRESSING PLACED. DISCHARGE INSTRUCTIONS GIVEN TO AND REVIEWED WITH PATIENT, PATIENT DENIES QUESTIONS OR CONCERNS AND VOICES UNDERSTANDING OF DISCHARGE INSTRUCTIONS. PT AMBULATES OUT OF ROOM WITHOUT DIFFICULTY.
== END 2018-10-31 15:49 | disposition home or self-care (01) ==
PROVIDERS: Emergency Provider Emergency Medicine
DX: R07.89 Other chest pain (principal); Z86.711 Personal history of pulmonary embolism; Z72.0 Tobacco use
CPT/HCPCS: 71275; 80048; 84484; 84703; 85025; 93005; 96361; 96374; 99284; J7030; Q9967; A4216

== ENCOUNTER 2018-11-18 18:14 | Emergency (ER) | payer SELFPAY ==
[2018-11-18 18:15] VITALS: BP 144/93; PULSE 82; RESP 16; TEMP 36.2; O2SAT 99; BMI 25.0
--- NOTE | 2018-11-18 18:40 | RAD_ITS ---
STUDY: X-RAY - RIGHT HAND, ATTENTION FIFTH FINGER REASON FOR EXAM: Female, 38 years old. Fifth digit pain. TECHNIQUE: 3 view(s) of the finger were obtained. COMPARISON: None. FINDINGS: Normal metacarpal head. Normal metacarpophalangeal joint. Normal proximal phalanx. Normal middle phalanx. Normal distal phalanx. Normal proximal interphalangeal joint. Normal distal interphalangeal joint. RAD/Finger(s) Min 2 Views IMPRESSION: Normal x-ray examination of the finger. Electronically Signed: Sara Garcia MD at 18:55 EDT Tel , Service support ,
--- NOTE | 2018-11-18 19:11 | ED.DCSUM_ITS ---
- ER Visit Summary Date of Service: 11/18/18 Chief Complaint: Right small finger pain. History of Present Illness: The patient is a 38 F past medical history of an aortic aneurysm. Patient states she has pain in the right small finger. She denies any fever or chills. No trauma. She is right-hand dominant. She was concerned that there may be infection even though she is seeing no redness or had any swelling. Physical Examination: Well-appearing middle-aged female. Vital signs are stable afebrile. HEENT exam unremarkable. Neck nontender. Lungs clear to auscultation. Heart regular rhythm no murmur. Abdomen soft nontender. Right small finger is completely normal exam. There is no swelling or redness. She has full flexion-extension. Normal cap refill normal touch sensation. No bony deformity. No signs of infection. No lymphangitic streaking. No axillary lymphadenopathy. Test Results: Per patient request right small finger x-ray x2 views was obtained shows no acute abnormality read both myself and the radiologist. Emergency Department Course and Treatment: Motrin for pain. Follow-up as needed. Treatment Plan: Motrin and Tylenol for pain. Return or follow-up if worse. Disposition: Discharge Impression: Musculoskeletal right small finger pain This note was generated with [employer] dictation software. It may contain incorrect words, spelling, and punctuation that were not noted in review of the chart prior to signing ED Disposition - Plan for ED Patient: Referrals: Care Physician,No Primary [Primary Care Provider] -
--- NOTE | 2018-11-18 19:12 | ED.DEP ---
ED Disposition - Plan for ED Patient: Disposition: Home or Assisted Living Referrals: James Sarkar MD [NON-STAFF] - 1 Week if not improving Additional Instructions: Motrin and Tylenol for pain. Follow-up with not improving.
== END 2018-11-18 19:16 | disposition home or self-care (01) ==
PROVIDERS: Emergency Provider Emergency Medicine
DX: M79.18 Myalgia, other site (principal); Z72.0 Tobacco use
CPT/HCPCS: 73140; 99282

== ENCOUNTER 2018-11-27 22:32 | Emergency (ER) | payer SELFPAY ==
[2018-11-27 22:33] VITALS: BP 161/98; PULSE 105; RESP 15; TEMP 37.2; O2SAT 96; BMI 30.1
--- NOTE | 2018-11-27 22:54 | ED.DCSUM_ITS ---
History of Present Illness Chief Complaint: General Illness Narrative: Patient is a 38-year-old female who presents with multiple complaints. She does have a history of periodontal disease which she states is worse and she is having some pain along her left lower teeth. She also has developed a lesion along the left upper lip. She complains of body aches/muscle aches joint aches. No fevers. No nausea vomiting. She is undergoing evaluation for possible autoimmune disease. She is had laboratory studies checked such as CRP and LIZETH. She states she was told she needs to see a diagnostician who can interpret the studies. Past Medical History - Allergies and Home Meds Allergies/Adverse Reactions: Allergies gabapentin [From Neurontin] Allergy (Verified 11/27/18 22:33) Anaphylaxis ketorolac [From Toradol] Allergy (Verified 11/27/18 22:33) Itching morphine Allergy (Verified 11/27/18 22:33) Hives pregabalin [From Lyrica] Allergy (Verified 11/27/18 22:33) Anaphylaxis Primary Care Physician: Care Physician,No Primary [Primary Care Provider] - Past Medical History: - - Periodontal disease, possible autoimmune disorder Smoking Status: Current every day smoker Review of Systems All systems negative except as indicated General: Denies: Fever ENT: Reports: - - Oral pain Cardiovascular: Denies: Chest pain Respiratory: Denies: Dyspnea Gastrointestinal: Denies: Vomiting, Diarrhea Musculoskeletal: Reports: Myalgias, Arthralgias Physical Exam Vital Signs/Narrative: Vital Signs Temp Pulse Resp BP Pulse Ox 11/27/18 22:33 99.0 F 105 H 15 161/98 H 96 General: Well nourished, Well developed Head: Normocephalic Eyes: EOMI ENT: Moist mucous membranes, - - Patient does have a raised lesion along the left upper lip with an appearance suggestive of herpes labialis however it is not painful, periodontal disease with gingival erythema and recession focally at the left mandibular canine no focal dental abscess no trismus Cardiovascular: Regular rate, Regular rhythm Respiratory: No distress, CTA bilaterally Abdomen: Soft Skin: Normal color Neurological: Alert Psychological: Normal affect Diagnostic/Tx/Re-eval - Medical Decision Making Patient's constellation of symptoms may be consistent with her possible autoimmune disorder. We will treat with oral antibiotics for her gingivitis/periodontal disease. Will treat supportively for muscle and joint aches although I did advise that she follow-up with her primary care physician for further work-up. I advised she may need to see a topographical surveyor. She understands to return for new or worsening symptoms and was advised on signs and symptoms which should prompt immediate return to the emergency department for reevaluation. ED Disposition - Plan for ED Patient: Disposition: Home or Assisted Living Diagnosis: Periodontal disease, Myalgia Instructions: Stages of Periodontal Disease, Myalgias Prescriptions: Naproxen [Naprosyn] 500 mg PO BID #20 tab Prescription Printed Penicillin V Potassium 500 mg PO 4X/DAY #40 tab Prescription Printed Referrals: Care Physician,No Primary [Primary Care Provider] -
[2018-11-27 23:12] VITALS: PULSE 91; RESP 15; O2SAT 99
== END 2018-11-27 23:14 | disposition home or self-care (01) ==
LOC: ED 23:02
PROVIDERS: Emergency Provider Emergency Medicine
DX: K05.6 Periodontal disease, unspecified (principal); M79.10 Myalgia, unspecified site; F17.200 Nicotine dependence, unspecified, uncomplicated
CPT/HCPCS: 99282

== ENCOUNTER 2019-05-20 17:09 | Emergency (ER) | payer SELFPAY ==
[2019-05-20 17:11] VITALS: BP 142/105; PULSE 89; RESP 18; TEMP 36.3; O2SAT 100; BMI 28.7
[2019-05-20 17:18] VITALS: O2SAT 99
--- NOTE | 2019-05-20 17:26 | CT_ITS ---
STUDY: CT SOFT TISSUE NECK WITH CONTRAST REASON FOR EXAM: Female, 39 years old. DIFFICULTY SWALLOWING X COUPLE WEEKS RADIATION DOSAGE (If Supplied By Facility): CTDIvol = ( 13.85 ) mGy, DLP = ( 404.68 ) mGycm TECHNIQUE: The patient was scanned in a multi-detector CT scanner. High resolution transaxial imaging was performed following intravenous administration of IV 75mL Isovue-300. Sagittal and coronal images were reconstructed. Individualized dose optimization techniques were used for this CT. COMPARISON: None. FINDINGS: No soft tissue masses or fluid collections are seen. No suspicious bony process. There is moderate mucus opacification of the right maxillary sinus. Normal bilateral parotid glands. Normal bilateral medical insurance coder spaces. Normal bilateral parapharyngeal spaces. Normal bilateral carotid spaces. Normal bilateral sublingual and submandibular glands and spaces. Normal visualized nasopharynx. Normal retropharyngeal space. Normal perivertebral space. Normal visualized bilateral faucial tonsils. The visualized tongue, tongue base and oropharynx are normal. The visualized cervical lymph nodes (levels I-) are within normal size limits, and maintain normal morphology. There is no demonstrated solid or cystic mass lesion. There is no abnormal contrast enhancement. Normal epiglottis, bilateral vallecula and hypopharynx. The pre-epiglottic and paraglottic adipose spaces are normal. Normal visualized bilateral piriform sinuses, aryepiglottic folds, vocal cords, and arytenoid-cricoid articulations. Normal subglottic trachea. Diffuse heterogeneity and multiple hypodense nodules are seen scattered throughout the thyroid gland. Normal visualized pulmonary apices. Normal visualized paranasal sinuses. Normal visualized cervical spine. CT/Soft Tissue Neck WITH Contrast IMPRESSION: 1. Diffuse heterogeneity and multiple hypodense nodules are seen scattered throughout the thyroid gland. 2. Widely patent airway. Normal epiglottis and tonsils and parapharyngeal mucosa by CT criteria. Electronically Signed: Db Ventura MD at 20:09 EST , Service support ,
[2019-05-20 17:58] LABS: Absolute Lymphocyte Count 3.13 X10^3/uL (0.83-4.51); Absolute Neutrophil Count 7.2 X10^3/uL (2.0-7.7); Basophil% 0.9 % (0-1); Eosinophils% 2.6 % (0-5); Hematocrit 41.7 % (37-47); Lymphocyte # 3.13 X10^3/ul (4.0); Mean Corp Hgb Conc 33.6 g/dL (32-36); Mean Corpuscular Hgb 32.3 pg (27.0-32.0); Mean Corpuscular Volume 96.1 fL (81-99); Mean Platelet Vol. 9.4 fl (6.2-12.0); Monocyte# 0.86 X10^3/uL; Monocyte% 7.4 % (0-10); NRBC Flagged by Analyzer 0 % (0-5); Neutrophil # 7.19 X10^3/uL (2.7-7.7); Neutrophil % 61.8 % (47-70); Platelet Count 332 K/mm3 (150-450); RBC Distribution Width SD 46.1 fl (35.1-43.9); Red Blood Count 4.34 M/mm3 (4.2-5.4); White Blood Count 11.6 K/mm3 (4.4-11.0)
[2019-05-20] MEDS: 0.9% Normal Saline 1,000 ML 150 ML IV (18:07)
[2019-05-20 18:11] LABS: Anion Gap 4 (5-15); BUN 8 mg/dL (7-18); BUN/Creat Ratio 10.9 RATIO (10-20); Calcium,Total 8.9 mg/dL (8.5-10.1); Chloride 110 mmol/L (98-107); Creatinine, Serum 0.73 mg/dL (0.55-1.02); EST Glomerular Filtration Rate 93 mL/min (>60); Est Glom Filt Rate - Afr Amer 113 mL/min (>60); Estimated Creatinine Clearance 92.18 ml/min; Glucose 97 mg/dL (74-106); Potassium 3.6 mmol/L (3.5-5.1); Sodium Level 142 mmol/L (136-145)
[2019-05-20 18:20] LABS: D-Dimer Quantitative (DVT/PE) 0.38 FEU/ug/m (0.27-0.49)
--- NOTE | 2019-05-20 18:43 | RAD_ITS ---
STUDY: X-RAY CHEST REASON FOR EXAM: Female, 39 years old. SOB, COUGH TECHNIQUE: PA and lateral views of the chest. COMPARISON: May 08, 2017 FINDINGS: The lungs are clear and expanded. There is no demonstrated pleural abnormality. Normal size heart. Normal mediastinum and luci. Normal visualized pulmonary arteries. Normal visualized aortic arch and descending thoracic aorta. Stable visualized osseous structures. RAD/Chest PA and Lateral IMPRESSION: No acute process Electronically Signed: Db Ventura MD at 19:18 EST , Service support ,
--- NOTE | 2019-05-20 20:23 | ED.DCSUM_ITS ---
- ER Visit Summary Date of Service: 05/20/19 Chief Complaint: [Shortness of breath] History of Present Illness: The patient is a 39 F [presents to the emergency department with 3-week history of shortness of breath. Patient complains of a cough and at times some sputum production. He denies any fevers. He has had some chills and sweats intermittently. Patient documented like a little viral bronchitis likely and come in right away. Patient states that at times she feels like she is having a hard time swallowing even fluids and has some odd discomfort in her throat. Patient does have history of a PE in 2015 however she is not currently anticoagulated. Patient also has a history of a small thora cic aneurysm that is being followed yearly and she states that it has not grown in the last 8 years. She denies any significant chest discomfort or exertional dyspnea.] Physical Examination: [HEENT-PERRLA, EOMI. Cranial nerves II through XII grossly intact. TMs clear. Mucous membranes moist. No adenopathy. No pharyngeal erythema or exudate. Uvula in the midline. No trismus. Cardiovascular-regular rate and rhythm without murmur or ectopy Lungs-clear to auscultation, chest wall stable without crepitus or subcu emphysema Abdomen-normoactive bowel sounds, soft, nontender, no rebound or rigidity, no peritoneal signs. Extremities-intact ?4, normal range of motion, normal pulses, atraumatic] Test Results: [CBC with differential obtained showed a slightly elevated white blood cell count of 11.6, hemoglobin 14, hematocrit 42, platelet 332. History unremarkable. D-dimer was 0.38.] CT scan of the soft tissue neck obtained showed multiple thyroid nodules otherwise nothing acute. Emergency Department Course and Treatment: [] Treatment Plan: [Patient will follow-up with her primary care physician regarding thyroid nodules. Patient states that she had been on Synthroid years ago and initially was told that she had Alicja's thyroiditis but then she was told that she did not.] Patient may need further evaluation of her thyroid nodules including possibly ultrasound and possibly biopsy. Disposition: [Discharged home in stable condition] Impression: [Dyspnea-etiology uncertain Thyroid nodule] This note was generated with [employer] software. It may contain incorrect words, spelling, and punctuation that were not noted in review of the chart prior to signing ED Disposition - Plan for ED Patient: Referrals: Care Physician,No Primary [Primary Care Provider] -
--- NOTE | 2019-05-20 20:26 | ED.DEP ---
ED Disposition - Plan for ED Patient: Instructions: ED Dyspnea Referrals: Care Physician,No Primary [Primary Care Provider] - 3-5 Days Additional Instructions: see your family doctor to evaluate further for thyroid nodules
[2019-05-20 20:34] VITALS: RESP 18; O2SAT 96
== END 2019-05-20 20:35 | disposition home or self-care (01) ==
PROVIDERS: Emergency Provider Emergency Medicine
DX: E04.1 Nontoxic single thyroid nodule (principal); R06.00 Dyspnea, unspecified; Z72.0 Tobacco use
CPT/HCPCS: 70491; 71046; 80048; 85025; 85379; 96360; 96361; 99283; J7030; Q9967

== ENCOUNTER 2019-10-03 15:28 | Emergency (ER) | payer OTHER, SELFPAY ==
[2019-10-03 15:30] VITALS: BP 149/99; PULSE 85; RESP 16; TEMP 36.8; O2SAT 97; BMI 26.6
--- NOTE | 2019-10-03 16:06 | ED.DCSUM_ITS ---
History of Present Illness Chief Complaint: Lower Extremity Injury Informant: Patient Onset: Today Narrative: Patient was at work today sitting in a swivel chair. A piece of paper is on the ground and she turned with her left foot planted to swivel and she felt a immed iate pain particularly in the lateral aspect of the knee. She states now it is very painful to bear weight radiates down to the mid muhammad. Past Medical History - Allergies and Home Meds Allergies/Adverse Reactions: Allergies gabapentin [From Neurontin] Allergy (Verified 10/03/19 15:30) Anaphylaxis ketorolac [From Toradol] Allergy (Verified 10/03/19 15:30) Itching morphine Allergy (Verified 10/03/19 15:30) Hives pregabalin [From Lyrica] Allergy (Verified 10/03/19 15:30) Anaphylaxis Primary Care Physician: Care Physician,No Primary [NON-STAFF] - Smoking Status: Current every day smoker Review of Systems General: Denies: Chills, Fever, Sweats Eyes: Denies: Visual changes - bilaterally, Diplopia ENT: Denies: Rhinorrhea, Sore throat Cardiovascular: Denies: Chest pain, Palpitations Respiratory: Denies: Dyspnea, Cough, Dyspnea on exertion Gastrointestinal: Denies: Abdominal pain, Nausea, Vomiting, Diarrhea, Melena, Hematochezia Genitourinary: Denies: Dysuria, Hematuria, Frequency Musculoskeletal: Reports: Extremity Pain - See history of present illness. Denies: Back pain Skin: Denies: Rash, Wounds Neurological: Denies: Headache, Weakness, Numbness Physical Exam Vital Signs/Narrative: Vital Signs Temp Pulse Resp BP Pulse Ox 10/03/19 15:30 98.2 F 85 16 149/99 H 97 Inital Vital Signs reviewed: Yes General: Well nourished, Well developed, No Acute Distress Head: Normocephalic, Atraumatic Eyes: Perrl, EOMI ENT: Moist mucous membranes, No rhinorrhea Neck: Supple, Nontender Cardiovascular: Regular rate, Regular rhythm, No murmurs Respiratory: No distress, CTA bilaterally, Chest nontender Abdomen: Soft, Nontender, Nondistended, Normal bowel sounds Back: Nontender, Normal Inspection Extremities: No edema, - - Patient complains of tenderness to palpation along the LCL ligament. There is no significant laxity of the ligaments on testing but she does guard. There is no palpable joint effusion. No deformity. No obvious Vega's cyst. Skin: Normal color, No rash Neurological: Alert, Oriented x3, Cranial nerves II-XII grossly intact, Normal Strength, Normal Sensation Psychological: Normal affect, Normal Mood Diagnostic/Tx/Re-eval Clinical Impression(s) from Imaging Studies Knee X-Ray 10/03/19 16:14 IMPRESSION: Mild degenerative change. No evidence for acute fracture Electronically Signed: Tyler Dasilva MD at 16:43 EDT , Service support , - Medical Decision Making X-rays are negative. Within the confines of the patient guarding during ligamentous testing I do not see an obvious mentis tear. Her extensor tendon appears intact. There is no obvious joint effusion. We will place her in an Gee wrap crutches as needed for pain and have her follow-up with [facility] or [facility]. of choice. We will be treating this as a knee sprain ED Disposition - Plan for ED Patient: Disposition: Home or Assisted Living Diagnosis: Left knee sprain Instructions: ED Sprain Knee Referrals: [facility] [NON-STAFF] - As soon as possible
--- NOTE | 2019-10-03 16:14 | RAD_ITS ---
STUDY: X-RAY - LEFT KNEE REASON FOR EXAM: Female, 39 years old. generalized left knee pain after sitting in a chair TECHNIQUE: 4 view(s) of the knee. COMPARISON: None. FINDINGS: Normal visualized distal femur. Normal visualized proximal tibia and fibula. Normal proximal tibiofibular articulation. Mildly narrowed medial femorotibial compartment. Normal lateral femorotibial compartment. Normal patellofemoral articulation. The soft tissue structures are unremarkable. RAD/Knee 4 or More Views IMPRESSION: Mild degenerative change. No evidence for acute fracture Electronically Signed: Tyler Dasilva MD at 16:43 EDT , Service support ,
== END 2019-10-03 17:41 | disposition home or self-care (01) ==
PROVIDERS: Emergency Provider Emergency Medicine; PCP Nurse Practitioner Primary Care
DX: S83.92XA Sprain of unspecified site of left knee, initial encounter (principal); F17.200 Nicotine dependence, unspecified, uncomplicated; X50.1XXA Overexertion from prolonged static or awkward postures, initial encounter
CPT/HCPCS: 73564; 99283

== ENCOUNTER → 2019-10-11 17:04 | Outpatient (CLI) | payer OTHER, SELFPAY ==
[2019-10-09 14:50] VITALS: BMI 26.6
--- NOTE | 2019-10-11 18:15 | MRI_ITS ---
STUDY: MRI LEFT KNEE REASON FOR EXAM: Female, 39 years old. Left knee pain after injury TECHNIQUE: Standardized fat and water weighted pulse sequences were obtained in all 3 orthogonal planes. COMPARISON: None. FINDINGS: No visualized fracture. Mild edema is seen in the anterior aspect of the patella with overlying soft tissue edema suggesting an acute contusion. Normal medial meniscus. Normal hyaline cartilage of the medial femorotibial compartment. Normal medial femoral condyle and tibial plateau. Normal medial collateral ligamentous complex (MCL). Normal distal semimembranosus, gracilis and semitendinosus tendons. Normal lateral meniscus. Normal hyaline cartilage of the lateral femorotibial compartment. Normal lateral femoral condyle and tibial plateau. Normal proximal tibiofibular articulation. Normal lateral collateral (fibular) ligament. Normal popliteus tendon. Normal biceps femoris tendon. Normal anterior cruciate ligament (ACL). Normal posterior cruciate ligament (PCL). Normal congruent patellofemoral articulation. Mild subchondral cystic changes are present in the superior pole of the medial patellar facet with mild overlying thinning of the cartilage. The remaining cartilage surfaces of the patellofemoral compartment are normal. Normal medial and lateral patellar retinaculum. Normal quadriceps tendon. Normal patellar tendon. Normal Hoffa''s fat pad. There is a small volume joint effusion. MRI/Lower Ext Joint Only (Routine) IMPRESSION: 1. Mild edema is seen in the anterior aspect of the patella with overlying soft tissue edema suggesting an acute contusion. 2. Small joint effusion. 3. 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 Electronically Signed: Db Ventura MD at 19:27 EDT , Service support ,
== END ==
PROVIDERS: PCP Nurse Practitioner Primary Care; Referring Provider Physician Assistant Surgical; Visit Provider Physician Assistant Surgical
DX: S83.92XA Sprain of unspecified site of left knee, initial encounter (principal)
CPT/HCPCS: 73721

== ENCOUNTER 2019-11-08 15:00 | Outpatient (RCR) | payer OTHER, SELFPAY ==
[2019-10-15 08:07] VITALS: BMI 26.6
--- NOTE | 2019-10-30 12:30 | HP.PTEVAL_ITS ---
Patient's Visit Information JOHNNIE RUIZ is a 39 year old F referred to Physical Therapy by DIANA Mayo with a diagnosis of STRAIN OF UNSPECIFIED MUSCLE AND TENDON AT LOWER LEG,LEFT. Date of Evaluation: 10/29/19 Physical Therapist: Phuc Soni, PT, Cert MDT, OCS - Visit Plan Frequency: 2-3x /Week Duration: 4-6 Weeks Plan: PT INTERVENTIONS ROM/FLEXABLITY QUADS/HAMS,STRENGTHENING QUAD/HAMS/HIP,FUNCTIONAL STRENGTHENING AND MODALTIES PRN - Subjective This 39 y/o female presents to physical therapy with left lower leg injury. Patient injuried left knee at work while sitiing in chair twisted knee along with chair moving picking a piece of paper.. Patient had severe pain with edema knee. Patient seen ER x-rays - then [facility] . Did MRI -. Patient pain located anterior knee. Aggraveting factors stairs,squatting,kneeling. During these activities will get sharp pain last short time. Patient described as ache. Alleviating pain rest. Denies parathesia/tingling.Patient has insominia.Patient condition affects ability to perform job demands and RTW. Patient symptoms affects QOL and function/stairs. SOCAIL: single. 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 PALATION: pes aserine tender left knee. GAIT: reciprocal pattern. AROM: 0-130 degrees Left,,0-140 degrees right. MMT: quads/hams 4/5,hip flexion /abduction 4-/5,ankle 4/5. FLEXABILITY: hams mild t ight. STAIRS: descend stairs one step - Special Tests L Knee Barber - Meniscus: Negative L Knee Hattie - ACL: Negative L Knee Anterior Drawer - ACL: Negative L Knee Valgus - MCL: Negative L Knee Varus - LCL: Negative L Knee Patellar Apprehension - PFS: Positive - Goals Goal 1:: I with HEP. Goal Time Frame: 4-6 Weeks Goal 2:: Patient decrease to decrease right knee pain by 75% or > to improve function and job demands Goal Time Frame: 4-6 Weeks Goal 3:: Patient to increase ROM left symmtrical to right to improve function Goal Time Frame: 4-6 Weeks Goal 4:: Patient to improve LFES score by score by 5 points or to iprove function to return function. Goal Time Frame: 4-6 Weeks Goal 5:: Patient be able to squat/kneel/stairs without limations for job demands. Goal Time Frame: 4-6 Weeks - Rehabilitation Potential Physical Therapy Diagnosis: Patient injuried knee left at work with decrease ROM ,pain impairs function and job demands thus benifit from PT and MRI - Rehabilitation Potential: Good - Anticipated Interventions Patient/Client Instruction: Educate patient on: Condition, Plan of Care For the Purpose of:: To decrease pain, To increase ROM, To increase oxygenation perfusion, To improve ability to perform ADL's, To increase tolerance to activity/condition/position, To improve ability of physical actions for home/community/work/leisure, To improve health of tissue, To decrease soft tissue restriction, To increase flexibility/ROM, To improve health and function, To improve ability to perform tasks related to life management Therapeutic Exercise to Include: Strength training, Endurance training, Flexibilty training, Active ROM For the Purpose of:: To decrease pain, To increase ROM, To improve muscle performance and motor function, To increase tolerance to activity/c ondition/position, To improve ability of physical actions for home/community/work/leisure, To improve health of tissue, To decrease soft tissue restriction, To increase flexibility/ROM, To improve ability to perform tasks related to life management TENS: Yes IF ES: Yes Cryotherapy (ice pack, ice massage): Yes Thermo therapy (hot pack): Yes Ultrasound (thermal/non thermal): Yes For the Purpose of:: To decrease pain, To increase ROM, To improve nutrient delivery to tissue, To increase oxygenation perfusion, To improve health of tissue, To decrease soft tissue restriction Thank you for the opportunity to evaluate your patient. For Medicare and Medicare HMO plans, please review the plan of care and approve it. It will need to be FAXED BACK to us at [phone] for Medicare purposes. For Medicare only, by signing this I certify the plan of care. Please let me know if there are questions or concerns regarding this plan of care. Physician Signature: Date:
--- NOTE | 2020-04-01 13:26 | HP.PT.NRP ---
JOHNNIE RUIZ was seen in my office for initial evaluation on 10/29/19. The following Plan of Care was established for this patient: Initial Frequency: 2-3x /Week Initial Duration: 4-6 Weeks Patient/Client Instruction: Educate patient on: Condition, Plan of Care For the Purpose of:: To decrease pain, To increase ROM, To increase oxygenation perfusion, To improve ability to perform ADL's, To increase tolerance to activity/condition/position, To improve ability of physical actions for home/community/work/leisure, To improve health of tissue, To decrease soft tissue restriction, To increase flexibility/ROM, To improve health and function, To improve ability to perform tasks related to life management Therapeutic Exercise to Include: Strength training, Endurance training, Flexibilty training, Active ROM For the Purpose of:: To decrease pain, To increase ROM, To improve muscle performance and motor function, To increase tolerance to activity/condition/position, To improve ability of physical actions for home/community/work/leisure, To improve health of tissue, To decrease soft tissue restriction, To increase flexibility/ROM, To improve ability to perform tasks related to life management TENS: Yes IF ES: Yes Cryotherapy (ice pack, ice massage): Yes Thermo therapy (hot pack): Yes Ultrasound (thermal/non thermal): Yes For the Purpose of:: To decrease pain, To increase ROM, To improve nutrient delivery to tissue, To increase oxygenation perfusion, To improve health of tissue, To decrease soft tissue restriction This patient was last seen in our office . Pertinent comments regarding their Physical therapy will appear below: Patient was seen for PT for 1 visit for exercises for lower leg injury. At this point I will be discontinuing this patient from physical therapy. I would be happy to see this patient again in the future if found appropriate by the physician. Thank you! Phuc oSni, PT, Cert MDT, OCS
== END 2019-11-08 19:00 | disposition home or self-care (01) ==
LOC: PT 15:00
PROVIDERS: PCP Nurse Practitioner Primary Care; Visit Provider Physician Assistant Surgical
DX: S86.912D Strain of unspecified muscle(s) and tendon(s) at lower leg level, left leg, subsequent encounter (principal)
CPT/HCPCS: 97110; 97161